=== PATIENT | female | born 1995 | race African-American/Black ===

== ENCOUNTER 2020-11-22 13:13 | Emergency (ER) | payer OTHER ==
[~2020-11-22] VITALS: Ht 167.6 cm; Wt 56.7 kg
[~2020-11-22 13:13] MED LIST: ALDARA1 EACH TP; COLACE 100 MG100 MG PO; FLAGYL500 MG PO; IBUPROFEN 600600 M1 PO; IRON325 PO; MACROBID 100 M100 M1 PO; NORCO 5-325 TA1 EACH PO; PRENATAL PO; TRIAMCINOLONE A80 G2 TOP
[2020-11-22 13:36] LABS: ABSOLUTE NEUTROPHILS 2.3 thou/uL (1.4-8.2); BASOPHILS 0.8 % (0.0-2.0); EOSINOPHILS 0.8 % (0.0-3.0); HEMATOCRIT 37.8 % (37.0-47.0); HEMOGLOBIN 12.6 gm/dL (12.0-15.0); LYMPHOCYTES 43.4 % (24.0-44.0); MCHC 33.2 g/dL (28.0-37.0); MCV 90.3 fL (80.0-100.0); MONOCYTES 11.5 % (1.0-8.0); PLATELET COUNT 295 thou/uL (150-400); POLYS 43.5 % (36.0-66.0); RBC 4.19 mil/uL (4.20-5.00); RDW 12.5 % (10.5-14.5); WBC 5.4 thou/uL (4.0-11.0)
[2020-11-22 13:51] LABS: ALBUMIN 3.6 g/dL (3.4-5.0); ANION GAP < 0 mmol/L (7-16); BUN 8 mg/dL (7-18); CALCIUM 8.7 mg/dL (8.5-10.1); CHLORIDE 98 mmol/L (98-107); CO2 22 mmol/L (21-32); CREATININE 0.8 mg/dL (0.6-1.0); GLUCOSE 82 mg/dL (74-106); MAGNESIUM 1.5 mg/dL (1.8-2.4); SGOT 13 U/L (15-37); SGPT 16 U/L (14-59); TOTAL BILIRUBIN 0.3 mg/dL (0.2-1.0); TOTAL PROTEIN 7.6 g/dL (6.4-8.2)
[2020-11-22 13:56] LABS: SODIUM 114 mmol/L (136-145)
[2020-11-22 14:58] LABS: URINE BILIRUBIN NEGATIVE (Negative); URINE BLOOD NEGATIVE (Negative); URINE CLARITY CLEAR; URINE COLOR YELLOW; URINE GLUCOSE-RANDOM* NEGATIVE (Negative); URINE KETONES NEGATIVE (Negative); URINE LEUKOCYTES-REFLEX NEGATIVE (Negative); URINE NITRITE-REFLEX NEGATIVE (Negative); URINE PROTEIN (DIPSTICK) NEGATIVE (Negative); URINE SPECIFIC GRAVITY 1.015 (1.005-1.035)
[2020-11-22 15:06] LABS: AMP/METHAMP Negative (Negative); BARBITURATES Negative (Negative); BENZODIAZEPINES Negative (Negative); COCAINE Negative (Negative); METHADONE Negative (Negative); OPIATES Negative (Negative); PCP Negative (Negative)
[2020-11-22] MEDS ORDERED: POTASSIUM20 PO (15:12)
[2020-11-22 15:27] VITALS: BP 118/76
--- NOTE | 2020-11-22 15:37 | EKG ---
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
== END 2020-11-22 15:32 | disposition home or self-care (01) ==
LOC: ER 13:13
PROVIDERS: Physician Assistant
DX: R20.2 Paresthesia of skin (principal); F41.9 Anxiety disorder, unspecified; E87.6 Hypokalemia; Z79.899 Other long term (current) drug therapy